=== PATIENT | male | born 1995 | race Caucasian/White ===

== ENCOUNTER 2016-10-09 13:00 | Emergency (ER) | payer BC, OTHER ==
[~2016-10-09] VITALS: Ht 180.3 cm; Wt 100.7 kg
[2016-10-09 13:12] VITALS: TEMP 36.7; Ht 180.3 cm; Wt 100.7 kg
[2016-10-09 13:49] LABS: BASO % 0.2 %; BASO ABS # 0.02 K/uL (0-0.2); COMPLETE YES; EOS % 0.7 %; HEMATOCRIT 47.3 % (42-52); IG% 0.4 %; LYMPH % 21.5 %; LYMPH ABS # 2.45 K/uL (1.2-3.4); MEAN CELL VOLUME 87.6 fL (80-100); MEAN CORPUSCULAR HEMOGLOBIN 29.4 pg (25-34); MEAN CORPUSCULAR HGB CONC 33.6 g/dl (32-36); MEAN PLATELET VOLUME 10.6 fL (7.4-10.4); MONO % 8.9 %; NEUT % 68.3 %; PLATELET COUNT 280 K/uL (130-400); WHITE BLOOD COUNT 11.39 K/uL (4.8-10.8)
[2016-10-09 13:58] LABS: BUN/CREATININE RATIO 11.1 (10-20); CALCIUM 8.9 mg/dl (8.5-10.1); CREATININE 0.85 mg/dl (0.60-1.40); POTASSIUM 4.1 mmol/L (3.5-5.1)
[2016-10-09] MEDS ORDERED: OPTIRAY 320 IV PRN (14:00)
[2016-10-09 14:02] LABS: CKMB/CK RATIO 0.5 (0-3.0); PARTIAL THROMBOPLASTIN RATIO 1.1; PROTHROMBIN TIME (PATIENT) 10.3 SECONDS (9.0-12.0)
[2016-10-09 14:08] LABS: POINT OF CARE TROPONIN I < 0.030 ng/ml (0-0.045)
--- NOTE | 2016-10-09 14:46 | DIAGNOSTIC IMAGING REPORT ---
CT ANGIOGRAPHY OF THE CHEST, PULMONARY EMBOLUS PROTOCOL CLINICAL HISTORY: Left sided chest pain with inspiration and shortness of breath COMPARISON STUDY: No previous studies for comparison. TECHNIQUE: Following IV administration of 91 mL of Optiray-320, helical axial images of the chest were obtained utilizing the pulmonary embolus protocol. Maximal intensity projections and sagittal and coronal reformats were viewed on an independent 3D workstation. IV contrast was administered without complication. CT DOSE: 406.88 mGy.cm FINDINGS: No pulmonary emboli are identified. Size of the heart is at the upper limits of normal. There is no evidence of thoracic aortic dissection. There is no pericardial effusion. A small left pleural effusion is noted. Associated left lower lobe airspace opacity is noted within the dependent aspect of the left lower lobe. Right lower lobe opacity favors atelectasis. Central airways are patent. There is no pneumothorax. Bony thorax and upper abdomen are unremarkable. There is no pneumothorax. IMPRESSION: 1. No pulmonary emboli identified. 2. Small left pleural effusion with associated left lower lobe airspace opacity. The appearance favors atelectasis although pneumonia could appear similar. 3. Subsegmental right lower lobe atelectasis. Electronically signed by: Ayden Parsons M.D. 10/09/2016 2:44 PM Dictated Date/Time: 10/09/2016 2:33 PM
[2016-10-09] MEDS ORDERED: AZITTAB PO (15:15)
--- NOTE | 2016-10-09 15:16 | EMERGENCY ROOM VISIT NOTE ---
History First contact with patient: 13:23 Chief Complaint: CHEST PAIN Stated Complaint: SHARP CHEST PAIN W/BREATHING History of Present Illness The patient is a 21 year old male who presents to the Emergency Room with complaints of sharp chest pains. The patient states that he has pain on the left side of his chest which started yesterday morning. He describes it as being achy initially but then after playing basketball yesterday afternoon he has sharp pains with deep inspiration or expiration. The patient denies any recent cold symptoms or fever. The patient denies any jaw or arm pain. The patient denies any numbness and tingling in his extremities. The patient denies any diaphoresis. The patient was seen at [facility] this morning for his symptoms and was instructed to come to the emergency room for further evaluation. He states that they did a chest x-ray and EKG and does not think that there was anything significant on either test but is unsure. The patient does admit to tobacco use. He smokes a half a pack of cigarettes per day for the past 2 years. The patient denies any recent leg pain, recent travel or recent surgeries. The patient denies any family history of early heart disease. Review of Systems 10 system review was performed and was negative unless stated otherwise history of present illness. Past Medical/Surgical History Stomach problems, concussion, wisdom teeth removal Social History Smoking Status: Current Every Day Smoker Alcohol Use: occasionally Marital Status: single Housing Status: lives with roommate Occupation Status: employed Current/Historical Medications No Active Prescriptions or Reported Meds Allergies Coded Allergies: No Known Allergies (Unverified , 10/09/16) Physical Exam Vital Signs Date Time Temp Pulse Resp B/P (MAP) Pulse Ox O2 Delivery O2 Flow Rate FiO2 10/09/16 13:54 75 10/09/16 13:12 36.7 93 18 155/100 95 Room Air Physical Exam GENERAL: 21-year-old white male appears in no acute distress. MENTAL Status: Alert and oriented 3. EARS: Canals clear. TMs without fluid level noted. NOSE: Nasal mucosa without erythema or engorgement. PHARYNX: No erythema or edema noted. Airway is adequate. NECK: Supple, no lymphadenopathy noted. No carotid bruits noted. LUNGS: Clear auscultation without wheezes rales or rhonchi. CARDIAC: Regular rate and rhythm without murmur, rub. Pulses is full and equal throughout. LOWER EXTREMITIES: Calves are nontender bilaterally. No erythema or edema noted. Negative Homans bilaterally. SKIN: No rashes noted. Medical Decision & Procedures ER Provider Diagnostic Interpretation: CT ANGIOGRAPHY OF THE CHEST, PULMONARY EMBOLUS PROTOCOL CLINICAL HISTORY: Left sided chest pain with inspiration and shortness of breath COMPARISON STUDY: No previous studies for comparison. TECHNIQUE: Following IV administration of 91 mL of Optiray-320, helical axial images of the chest were obtained utilizing the pulmonary embolus protocol. Maximal intensity projections and sagittal and coronal reformats were viewed on an independent 3D workstation. IV contrast was administered without complication. CT DOSE: 406.88 mGy.cm FINDINGS: No pulmonary emboli are identified. Size of the heart is at the upper limits of normal. There is no evidence of thoracic aortic dissection. There is no pericardial effusion. A small left pleural effusion is noted. Associated left lower lobe airspace opacity is noted within the dependent aspect of the left lower lobe. Right lower lobe opacity favors atelectasis. Central airways are patent. There is no pneumothorax. Bony thorax and upper abdomen are unremarkable. There is no pneumothorax. IMPRESSION: 1. No pulmonary emboli identified. 2. Small left pleural effusion with associated left lower lobe airspace opacity. The appearance favors atelectasis although pneumonia could appear similar. 3. Subsegmental right lower lobe atelectasis. Electronically signed by: Ayden Parsons M.D. 10/09/2016 2:44 PM Dictated Date/Time: 10/09/2016 2:33 PM Laboratory Results 10/09/16 13:20 Red Blood Count 5.40, Mean Corpuscular Volume 87.6, Mean Corpuscular Hemoglobin 29.4, Mean Corpuscular Hemoglobin Concent 33.6, Mean Platelet Volume 10.6, Neutrophils (%) (Auto) 68.3, Lymphocytes (%) (Auto) 21.5, Monocytes (%) (Auto) 8.9, Eosinophils (%) (Auto) 0.7, Basophils (%) (Auto) 0.2, Neutrophils # (Auto) 7.79, Lymphocytes # (Auto) 2.45, Monocytes # (Auto) 1.01, Eosinophils # (Auto) 0.08, Basophils # (Auto) 0.02 10/09/16 13:20 Test 10/09/16 13:20 10/09/16 13:48 White Blood Count 11.39 K/uL (4.8-10.8) Red Blood Count 5.40 M/uL (4.7-6.1) Hemoglobin 15.9 g/dL (14.0-18.0) Hematocrit 47.3 % (42-52) Mean Corpuscular Volume 87.6 fL (80-100) Mean Corpuscular Hemoglobin 29.4 pg (25-34) Mean Corpuscular Hemoglobin Concent 33.6 g/dl (32-36) Platelet Count 280 K/uL (130-400) Mean Platelet Volume 10.6 fL (7.4-10.4) Neutrophils (%) (Auto) 68.3 % Lymphocytes (%) (Auto) 21.5 % Monocytes (%) (Auto) 8.9 % Eosinophils (%) (Auto) 0.7 % Basophils (%) (Auto) 0.2 % Neutrophils # (Auto) 7.79 K/uL (1.4-6.5) Lymphocytes # (Auto) 2.45 K/uL (1.2-3.4) Monocytes # (Auto) 1.01 K/uL (0.11-0.59) Eosinophils # (Auto) 0.08 K/uL (0-0.5) Basophils # (Auto) 0.02 K/uL (0-0.2) RDW Standard Deviation 41.1 fL (36.4-46.3) RDW Coefficient of Variation 12.8 % (11.5-14.5) Immature Granulocyte % (Auto) 0.4 % Immature Granulocyte # (Auto) 0.04 K/uL (0.00-0.02) Prothrombin Time 10.3 SECONDS (9.0-12.0) Prothromb Time International Ratio 1.0 (0.9-1.1) Activated Partial Thromboplast Time 29.0 SECONDS (21.0-31.0) Partial Thromboplastin Ratio 1.1 Anion Gap 6.0 mmol/L (3-11) Est Creatinine Clear Calc Drug Dose 164.7 ml/min Estimated GFR () 143.4 Estimated GFR (Non- 123.7 BUN/Creatinine Ratio 11.1 (10-20) Calcium Level 8.9 mg/dl (8.5-10.1) Total Creatine Kinase 179 U/L (39-308) Creatine Kinase MB 0.9 ng/ml (0.5-3.6) Creatine Kinase MB Ratio 0.5 (0-3.0) Bedside D-Dimer 164 ng/mlFEU (0-450) Bedside Troponin I < 0.030 ng/ml (0-0.045) ECG Indication: chest pain Rhythm: normal sinus Findings: no acute ischemic change, other (NE interval depression) ED Course The patient was evaluated. I reviewed the physician's notes from [facility] There are no significant findings on the chest x-ray, his EKG revealed some depression and the NE intervals which could be consistent with pericarditis. The patient was placed on a monitor. IV access was obtained. EKG was ordered and interpreted by myself as above with normal sinus rhythm with NE interval depression but no acute ST changes. CBC and differential, renal profile, coags, pointing care d-dimer, smelq-gn-mfwc troponin, CK-MB were ordered. I discussed the case with Dr. Portillo who agreed with treatment plan. CTA of the chest was ordered and interpreted by the radiologist as above without any evidence of pericardial effusion here or pulmonary embolus. Small left pleural effusion as well as some atelectasis and possible early infiltrate noted. Due to the patient's slightly bumped white count this could be early pneumonia. Remainder of labs are unremarkable. [id number]-qt-[id number] d-dimer and troponin were normal. Dr. Portillo was in agreement with treatment plan. The patient was informed of all findings and discharged home in stable condition.. Medical Decision Differential diagnosis include pericarditis, pneumonia, pulmonary embolus, bronchitis, pleuritic chest pain Impression Primary Impression: Pneumonia Additional Impression: Pleural effusion on left Departure Information Dispostion Home / Self-Care Condition GOOD Prescriptions Azithromycin (ZITHROMAX Z-NELI) 250 Mg Tab 0 PO UD, #1 PKT Prov: Maria Antonia Alexandre PA-C 10/09/16 Referrals No Doctor, Assigned (PCP) Forms HOME CARE DOCUMENTATION FORM, IMPORTANT VISIT INFORMATION Patient Instructions ED Pneumonia Adult, [facility] Additional Instructions Ibuprofen 600 mg every 6 hours with food for pain. Take Zithromax as prescribed. Recommend taking deep inspirations multiple times throughout the day. Follow-up with your family physician in one week for reevaluation or earlier if symptoms worsen. Problem Qualifiers Primary Impression: Pneumonia Pneumonia type: due to unspecified organism Laterality: left Lung location : lower lobe of lung Qualified Codes: J18.1 - Lobar pneumonia, unspecified organism
[2016-10-09 15:29] VITALS: BP 142/80; PULSE 84; O2SAT 97
== END 2016-10-09 15:32 | disposition home or self-care (01) ==
LOC: C.EDB 13:02 → C.EDA 15:32
DX: J18.9 Pneumonia, unspecified organism (principal); J90 Pleural effusion, not elsewhere classified; F17.200 Nicotine dependence, unspecified, uncomplicated; Z87.19 Personal history of other diseases of the digestive system

== ENCOUNTER 2017-05-26 08:48 | Emergency (ER) | payer BC, OTHER ==
[~2017-05-26] VITALS: Ht 180.3 cm; Wt 105.5 kg
[2017-05-26 08:50] VITALS: TEMP 36.8; Ht 180.3 cm; Wt 105.5 kg
[2017-05-26] MEDS ORDERED: XYLOCAINE 1%/SOD BICARB 20 ML VIAL INFIL STA (09:54)
[2017-05-26] MEDS ORDERED: DIPHTHERIA/TETANUS/PERTUSSIS 0.5 ML SYR/VIAL IM. ONE ×2 (10:15→13:00)
[2017-05-26] MEDS ORDERED: DAYQLIQ PO (10:33)
[2017-05-26] MEDS ORDERED: [UNRECOGNIZED DRUG - OTHER] PO (10:33)
[2017-05-26] MEDS ORDERED: OXYCODONE HCL IR 5 MG TAB (IMMEDIATE RELEASE) PO STA (12:29)
[2017-05-26] MEDS ORDERED: CEPHALEXIN MONOHYDRATE 250 MG CAP PO STA (12:29)
[2017-05-26] MEDS ORDERED: CEPH500C PO (12:31)
[2017-05-26] MEDS ORDERED: OXYC1TAB3 PO (12:33)
--- NOTE | 2017-05-26 12:33 | EMERGENCY ROOM VISIT NOTE ---
ED Visit Note First contact with patient: 08:56 CHIEF COMPLAINT: Right ear laceration HISTORY OF PRESENT ILLNESS: This 21-year-old male patient presents to the emergency department, ambulatory, after cutting the right ear. The patient is uncertain exactly when the injury occurred, as he was drinking last night. He states he fell out of bed this morning, and noticed there is blood in the bed and his ear began bleeding. He states last night, he believes he knocked a glass over, which broke. He states he awoke this morning with a laceration through the cartilage and pinna of the right ear. The bleeding has stopped. Denies weakness or numbness of the ear. The patient rates the pain as minimal and 2/10. The patient denies any other injuries. The patient's Tetanus shot is not up to date. REVIEW OF SYSTEMS: A 6 system review of systems was completed with positives and pertinent negatives listed in the HPI. ALLERGIES: None MEDICATIONS: None PMH: None SOCIAL HISTORY: The patient lives locally with family. He is a [employer] Student. He denies drug use. He states he smokes 1 pack cigarettes per week and states he does use alcohol. He admits to a few drinks last night. PHYSICAL EXAM: Vital Signs: Reviewed Nurse's notes, vital signs stable. GENERAL : This is a 21 year old male, in no acute distress, well-developed, well- nourished. Odor of Alcohol from patient. SKIN: There is a 4 cm long laceration in the vertical plane, extending through the anterior aspect of the antihelix, through the inferior aspect of the [place], through the antitragus, and through the entire lobe communicating to the posterior aspect of the right ear. The edges gape apart and the lobe is completely . There is no foreign material in the wound and it looks clean. There is minimal active bleeding. No deep structures such as tendons, bones, or significant blood vessels are seen in the base of the wound. Capillary refill less than 2 seconds. Normal sensation to light and sharp touch. EMERGENCY DEPARTMENT COURSE: I examined the patient. Due to the complexity of the laceration, I did consult with ENT after Dr. Conte did see and evaluate the patient. I spoke with Dr. Lara, who states his department does not address traumatic injuries, but he would be willing to see the patient in follow -up. He did recommend repair here as was performed, and states there is no need to repair the cartilage, as it will not heal together anyway. Verbal consent was obtained to perform the procedure. Using sterile technique the wound was cleansed with Betadine. The area was sterilely draped. 10 ml total of 1% buffered lidocaine was used to anesthetize the laceration on the right ear. Once the patient was anesthetized, the wound was copiously irrigated under pressure with sterile saline. The wound was explored and was as described above. The laceration was repaired using 4 subcuticular 5-0 Vicryl sutures through the lobe and 19 simple interrupted 6-0 nylon sutures with the wound edges being well approximated. The patient tolerated the procedure well, however did need anesthetized throughout the procedure. Hemostasis was achieved. The area was cleaned with sterile saline and dressed with bacitracin ointment and bandage. The patient was given Tdap immunization. The patient was given a dose of OxyIR and Keflex here in the ED. Discharge instructions were reviewed and prescriptions were sent. The patient was discharged home in good condition. I attest that I have personally reviewed the patient's current medication list. Patient was found to have normal blood pressure on screening and does not require follow-up. DIFFERENTIAL DIAGNOSIS: Trauma, assault, laceration, complex laceration, and others. DIAGNOSIS: Complex laceration of the right ear Current/Historical Medications Scheduled Cephalexin Monohydrate (Keflex), 500 MG PO QID [Dayquil], 15 ML PO UD [Nytquil], 2 CAP PO HS Scheduled PRN Oxycodone Ir (Roxicodone Ir), 1-2 TAB PO Q4H PRN for Pain Allergies Coded Allergies: No Known Allergies (Unverified , 05/26/17) Vital Signs Date Time Temp Pulse Resp B/P (MAP) Pulse Ox O2 Delivery O2 Flow Rate FiO2 05/26/17 13:00 103 18 151/86 98 05/26/17 08:50 36.8 102 20 151/95 97 Room Air Medications Administered Medications (Trade) Dose Ordered Sig/Maximilian Route Start Time Stop Time Status Last Admin Dose Admin Cephalexin Monohydrate (Keflex Cap) 500 mg NOW STAT PO 05/26/17 12:29 05/26/17 12:30 DC 05/26/17 12:46 500 MG Oxycodone HCl (Roxicodone Immediate Rel Tab) 5 mg NOW STAT PO 05/26/17 12:29 05/26/17 12:30 DC 05/26/17 12:47 5 MG Diphtheria/ Pertussis/Tetanus Vacc (Adacel Inj) 0.5 ml ONCE ONCE IM. 05/26/17 13:00 05/26/17 13:01 DC 05/26/17 12:54 0.5 ML Departure Information Impression Primary Impression: Laceration of ear, complex Dispostion Home / Self-Care Condition GOOD Prescriptions Oxycodone Ir (Roxicodone Ir) 5 Mg Tab 1-2 TAB PO Q4H Y for Pain, #15 TAB For Initial Treatment Prov: Brianna Smyth PA-C 05/26/17 Cephalexin Monohydrate (Keflex) 500 Mg Cap 500 MG PO QID for 7 Days, #28 CAP Prov: Brianna Smyth PA-C 05/26/17 Referrals No Doctor, Assigned (PCP) Eunice Lara M.D. Patient Instructions ED Laceration Facial Sutr Tape, [facility] Additional Instructions You have received 19 sutures on your right ear. These sutures are NOT dissolvable and WILL need to be removed by a health care provider in 7-10 days. You can return to the Emergency Department or contact your Primary Care Provider to have the sutures removed. You did receive 4 subcuticular, absorbable sutures under the skin within the right ear. These will not need to be removed by a healthcare provider. Proper wound care is essential for adequate wound healing and infection prevention. You can shower and clean the wound with soap and water. Do not scour over the wound, pat dry with a towel. Do not submerse the wound (i.e. bathe or dish wash) until the sutures have been removed. You can use an antibiotic ointment with a dressing over the wound for the next 3-4 days. After this time you may leave the wound dry and open to the air. If crust develops over the wound you can use a Q-tip to apply a 1:1 peroxide:water solution to clean the wound. Look for signs of infection of the wound including: increased pain, swelling, foul discharge, streaking, or increased temperature. If any of these are noticed you should return to the Emergency Department for further assessment and treatment. As with any laceration you may have received nerve damage to the surrounding tissues. This damage may or may not be permanent. You should keep the area covered with sunscreen for the first 6 months to 1 year when at risk for exposure to help minimize scarring. You can also use scar reducing creams or Vitamin E oil to help minimize scarring. For pain control, you can use the following [id number] medicines (if >12 yo): Ibuprofen(Motrin, Advil) may be used for fever or pain. Use 600mg every six hours as needed. Take with food. Avoid using more than 2400mg in a 24 hour period. Do not use 2400mg per day for more than three consecutive days without physician direction. Prolonged inappropriate use can lead to stomach upset or ulcers. (AND/OR) Acetaminophen(Tylenol) may be used for fever or pain. Use 1000mg every six hours as needed. Avoid using more than 3000mg in a 24 hour period. Oxycodone (OxyIR) 5mg: Take 1-2 pills every four hours as needed for breakthrough pain. Avoid alcohol, operating machinery or dangerous equipment, working on ladders or roofs, DRIVING, or situations where being under the influence may be dangerous. It is recommended to use a stool softener such as Colace, 100mg twice daily while taking this medication to avoid constipation. Cephalexin(Keflex) 500mg: Take one pill four times daily for 10 days for your skin infection. All antibiotics can cause diarrhea. If this occurs and you feel worse or it does not resolve in 1-2 days follow up with your doctor or return to the Emergency Department as this could be signs of serious underlying problems. Any medication can cause an allergic reaction, stop the pills immediately and return to the ER for rash, hives, breathing difficulties, or swelling. Please follow-up with ENT within 1 week for re-evaluation. Return to the emergency department if your symptoms worsen despite treatment course outlined above. Problem Qualifiers Primary Impression: Laceration of ear, complex Encounter type: initial encounter Laterality: right Qualified Codes: S01.311A - Laceration without foreign body of right ear, initial encounter
[2017-05-26 13:00] VITALS: BP 151/86; PULSE 103; O2SAT 98
== END 2017-05-26 13:00 | disposition home or self-care (01) ==
LOC: C.EDB 08:50
DX: S01.311A Laceration without foreign body of right ear, initial encounter (principal); W19.XXXA Unspecified fall, initial encounter; F17.200 Nicotine dependence, unspecified, uncomplicated; Z23 Encounter for immunization